=== PATIENT | male | born 1985 | race Caucasian/White ===

== ENCOUNTER 2020-12-16 15:17 | Inpatient (IN) | payer OTHER ==
[~2020-12-16] VITALS: Ht 188 cm; Wt 160.3 kg
[2020-12-16] MEDS ORDERED: SODIUM CHLORIDE FLUSH 10ML SYR IVF ONE (16:00)
[2020-12-16] MEDS ORDERED: SODIUM CHLORIDE 0.9% 1,000ML IVBOLUS ONE (16:00)
[2020-12-16 16:30] LABS: INTERNATIONAL NORMALIZED RATIO 3.8 (0.93-1.1); PROTHROMBIN TIME 38.2 Seconds (9.6-11.5)
[2020-12-16 16:32] LABS: ALANINE AMINOTRANSFERASE 22 U/L (12-78); ALBUMIN 3.3 g/dL (3.4-5.0); ANION GAP 5 mmol/L (5-15); BASOPHILS % (AUTO) 1 % (0-1); CALCIUM 8.9 mg/dL (8.5-10.1); CHLORIDE 109 mmol/L (98-107); CREATININE 0.96 mg/dL (0.7-1.3); EOSINOPHILS % (AUTO) 2 % (1-7); LYMPHOCYTES % (AUTO) 12 % (22-44); MEAN CORPUSCULAR HEMOGLOBIN 28.9 pg (27.5-34.5); MEAN CORPUSCULAR HGB CONC 34.3 g/dL (33.2-36.2); MEAN PLATELET VOLUME 8.1 fL (7.4-10.4); MONOCYTES % (AUTO) 6 % (2-9); NEUTROPHILS % (AUTO) 80 % (42-75); PLATELET COUNT 336 x10^3/uL (130-400); RED BLOOD COUNT 4.55 x10^6/uL (4.38-5.82); RED CELL DISTRIBUTION WIDTH 14.6 % (9.4-14.8)
[2020-12-16 16:34] LABS: ALKALINE PHOSPHATASE 81 U/L (45-117); BILIRUBIN,TOTAL 0.8 mg/dL (0.2-1.0)
[2020-12-16] MEDS ORDERED: ONDANSETRON 2MG/ML, 2ML ONE (18:48)
[2020-12-16] MEDS ORDERED: HYDROmorphone 1 MG/ML, 1ML INJ ONE ×3 (18:48→23:39)
[2020-12-16] MEDS ORDERED: LIDOCAINE/PF 1%, 30ML ONE (18:54)
[2020-12-16] MEDS ORDERED: EPINEPHRINE 1 MG/ML, 1ML ONE (18:54)
--- NOTE | 2020-12-16 18:59 | NUR ---
pt here for abcess to tooth. pt sent here for md. PIV placed. fluids running and pt medicated for nausea and pain. pt has hx of dm2, htn and mitral valve replacement. pt to ct. will hand abx whrn pt returns
[2020-12-16] MEDS ORDERED: AMPICILLIN/SULBACTAM 3 GM in SODIUM CHLORIDE 0.9% 100 ML IV ONE (19:00)
[2020-12-16] MEDS ORDERED: ONDANSETRON 2MG/ML, 2ML IVPush ONE (19:00)
[2020-12-16] MEDS ORDERED: HYDROmorphone 2 MG/ML, 1ML IVPush ONE (19:00)
[2020-12-16] MEDS ORDERED: OMNIPAQUE 350 MG/ML, 100ML BOTTLE ONE (19:12)
[2020-12-16] MEDS ORDERED: PIOG15TA22 PO (19:25)
[2020-12-16] MEDS ORDERED: CARV25TA12 PO (19:25)
[2020-12-16] MEDS ORDERED: METF-163 PO (19:25)
[2020-12-16] MEDS ORDERED: ATOR-2 PO (19:25)
[2020-12-16] MEDS ORDERED: SERT100T PO (19:25)
[2020-12-16] MEDS ORDERED: WARF4TAB65 PO (19:25)
[2020-12-16] MEDS ORDERED: FENO145T19 PO (19:25)
[2020-12-16] MEDS ORDERED: WARF2TAB99 PO (19:25)
[2020-12-16] MEDS ORDERED: GLIP10TA13 PO (19:25)
[2020-12-16] MEDS ORDERED: LISI5TAB7 PO (19:25)
--- NOTE | 2020-12-16 19:31 | NUR ---
ABX running. Med rec complete. Pt getting undressed for OR. VSS, Call light in reach
--- NOTE | 2020-12-16 19:47 | NUR ---
PT TO GO TO MRI. SCREENING FORM FAXED TO MRI.
--- NOTE | 2020-12-16 19:52 | NUR ---
REPORT FROM NURIA CLARK
--- NOTE | 2020-12-16 19:55 | NUR ---
PER DR MCKEON, HOLD FFP SINCE PT IS NOT GOING TO HAVE SURGERY UNTIL TOMORROW.
[2020-12-16] MEDS ORDERED: GADOTERATE 10 MMOL/20ML SYR ONE ×2 (20:21→20:35)
--- NOTE | 2020-12-16 20:39 | NUR ---
PT IN MRI AT THIS TIME
--- NOTE | 2020-12-16 21:05 | NUR ---
PT REQUESTING MORE PAIN MEDS. DR MCKEON NOTIFED.
--- NOTE | 2020-12-16 21:20 | NUR ---
VERBAL ORDERS RECIEVED FOR 1 MG IV DILAUDID. PT MEDICATED FOR PAIN PER DR JAMIL ORDERS
[2020-12-16] MEDS ORDERED: HYDROmorphone 1 MG/ML, 1ML INJ IV ONE ×2 (21:30→23:30)
--- NOTE | 2020-12-16 22:04 | NUR ---
PT REPORTS RELIEF OF PAIN
--- NOTE | 2020-12-16 23:17 | NUR ---
CALLED RAD REGARDING MRI READ. SHAHRZAD STATES SHE WILL PUSH IT TO STAT RAD
[2020-12-17] VITALS (7 sets, daily range): BP systolic 136–153; BP diastolic 82–91
--- NOTE | 2020-12-17 00:04 | NUR ---
REPORT TO NURIA WEBBER
[2020-12-17] MEDS ORDERED: KETOROLAC 30 MG/1 ML IV PRN (00:30)
[2020-12-17] MEDS ORDERED: ONDANSETRON 2MG/ML, 2ML IVPush PRN ×2 (00:30→20:00)
[2020-12-17] MEDS ORDERED: BISACODYL 10 MG SUPP PR PRN (00:30)
[2020-12-17] MEDS ORDERED: LABETALOL 5MG/ML, 20ML IVPush PRN (00:30)
[2020-12-17] MEDS ORDERED: HEPARIN 5,000 UNITS/ML, 1ML IV ONE (01:00)
[2020-12-17] MEDS: LACTATED RINGERS 1,000 ML IV SCH ×3 (01:31→21:57)
[2020-12-17] MEDS: HYDROmorphone 1 MG/ML, 1ML INJ IV PRN ×6 (01:40→22:32)
[2020-12-17] MEDS: AMPICILLIN/SULBACTAM 3 GM in SODIUM CHLORIDE 0.9% 100 ML IV SCH ×4 (01:52→21:47)
[2020-12-17 01:57] LABS: BASOPHILS % (AUTO) 1 % (0-1); EOSINOPHILS % (AUTO) 2 % (1-7); LYMPHOCYTES % (AUTO) 15 % (22-44); MEAN CORPUSCULAR HEMOGLOBIN 28.3 pg (27.5-34.5); MEAN CORPUSCULAR HGB CONC 33.6 g/dL (33.2-36.2); MEAN PLATELET VOLUME 7.8 fL (7.4-10.4); MONOCYTES % (AUTO) 7 % (2-9); NEUTROPHILS % (AUTO) 75 % (42-75); PLATELET COUNT 330 x10^3/uL (130-400)
[2020-12-17] MEDS: INSULIN LISPRO 100 UNITS/ML, PEN SQ-INSULIN SCH ×5 (01:58→21:00)
[2020-12-17] MEDS: HEPARIN 25,000 UNITS/250ML PMX 250 ML IV PRN ×2 (02:57→23:20)
[2020-12-17] MEDS: LISINOPRIL 5 MG TABLET PO SCH (08:06)
[2020-12-17] MEDS: FENOFIBRATE 145 MG TABLET PO SCH (08:06)
[2020-12-17] MEDS: SERTRALINE 100MG TABLET PO SCH (08:07)
[2020-12-17] MEDS: CARVEDILOL 25 MG TABLET PO SCH ×2 (08:07→21:47)
[2020-12-17] MEDS: HEPARIN 5,000 UNITS/ML, 1ML IV PRN ×2 (09:27→23:54)
[2020-12-17 10:08] LABS: INTERNATIONAL NORMALIZED RATIO 3.35 (0.93-1.1); PROTHROMBIN TIME 33.8 Seconds (9.6-11.5)
[2020-12-17] MEDS ORDERED: BUPIVACAINE 0.25% ONE (18:34)
[2020-12-17] MEDS ORDERED: EPINEPHRINE 1 MG/ML, 1ML ONE (18:34)
[2020-12-17] MEDS ORDERED: LIDOCAINE/PF 1%, 30ML ONE (18:34)
[2020-12-17] MEDS ORDERED: FENTANYL PF 250 MCG/5ML ONE (19:01)
[2020-12-17] MEDS ORDERED: MIDAZOLAM 1 MG/ML, 2ML ONE (19:01)
[2020-12-17] MEDS ORDERED: SUCCINYLCHOLINE 20 MG/ML, 10ML ONE (19:23)
[2020-12-17] MEDS ORDERED: ONDANSETRON 2MG/ML, 2ML ONE (19:23)
[2020-12-17] MEDS ORDERED: LIDOCAINE/PF 1%, 30ML INFIL ONE (19:26)
[2020-12-17] MEDS ORDERED: PROPOFOL 10 MG/ML, 20ML ONE (19:35)
[2020-12-17] MEDS ORDERED: ROCURONIUM 10MG/ML,5ML ONE (19:35)
[2020-12-17] MEDS ORDERED: HYDROmorphone 1 MG/ML, 1ML INJ IVPush PRN (20:00)
[2020-12-17] MEDS ORDERED: LABETALOL 5MG/ML, 20ML IV PRN (20:00)
[2020-12-17] MEDS ORDERED: ACETAMINOPHEN 325 MG TABLET PO PRN (20:00)
[2020-12-17] MEDS ORDERED: MEPERIDINE/PF 25MG/0.5ML IVPush PRN (20:00)
[2020-12-17] MEDS ORDERED: hydrALAzine 20 MG/ML, 1ML IV PRN (20:00)
[2020-12-17] MEDS ORDERED: OXYcodone 5 MG/5 ML ORAL.SOL UDC PO PRN (20:00)
[2020-12-17] MEDS ORDERED: PROMETHAZINE 25 MG/ML, 1ML IVPush PRN (20:00)
[2020-12-17] MEDS ORDERED: FENTANYL PF 100 MCG/2ML ONE (20:15)
[2020-12-17] MEDS: FENTANYL PF 100 MCG/2ML IV PRN ×2 (20:18→20:45)
[2020-12-17] MEDS ORDERED: ACETAMINOPHEN 650 MG/20.3 ML UDC ONE (20:51)
[2020-12-17] MEDS ORDERED: OXYcodone 5 MG/5 ML ORAL.SOL UDC ONE (20:51)
[2020-12-17] MEDS ORDERED: ATORVASTATIN 80 MG TABLET PO SCH (21:00)
[2020-12-17] MEDS: CHLORHEXIDINE 15 ML UDC MM SCH (22:22)
[2020-12-17 23:33] LABS: INTERNATIONAL NORMALIZED RATIO 3.02 (0.93-1.1); PROTHROMBIN TIME 30.7 Seconds (9.6-11.5)
[2020-12-18 00:24] VITALS: BP 116/75
[2020-12-18] MEDS: HYDROmorphone 1 MG/ML, 1ML INJ IV PRN ×4 (01:17→10:06)
[2020-12-18] MEDS: AMPICILLIN/SULBACTAM 3 GM in SODIUM CHLORIDE 0.9% 100 ML IV SCH ×2 (03:21→09:08)
[2020-12-18 03:57] VITALS: BP 117/78
[2020-12-18] MEDS: HEPARIN 5,000 UNITS/ML, 1ML IV PRN (06:00)
[2020-12-18 06:07] LABS: CHLORIDE 108 mmol/L (98-107)
[2020-12-18] MEDS: INSULIN LISPRO 100 UNITS/ML, PEN SQ-INSULIN SCH ×2 (06:14→10:55)
[2020-12-18 06:15] LABS: ALANINE AMINOTRANSFERASE 19 U/L (12-78); ALBUMIN 2.6 g/dL (3.4-5.0); ALKALINE PHOSPHATASE 63 U/L (45-117); ANION GAP 7 mmol/L (5-15); BILIRUBIN,TOTAL 0.6 mg/dL (0.2-1.0); CALCIUM 8.4 mg/dL (8.5-10.1); CREATININE 0.87 mg/dL (0.7-1.3); TOTAL PROTEIN 6.7 g/dL (6.4-8.2)
[2020-12-18 07:15] VITALS: BP 138/89
[2020-12-18] MEDS: CHLORHEXIDINE 15 ML UDC MM SCH (08:01)
[2020-12-18] MEDS: LISINOPRIL 5 MG TABLET PO SCH (08:01)
[2020-12-18] MEDS: SERTRALINE 100MG TABLET PO SCH (08:01)
[2020-12-18] MEDS: CARVEDILOL 25 MG TABLET PO SCH (08:01)
[2020-12-18] MEDS: LACTATED RINGERS 1,000 ML IV SCH (08:01)
[2020-12-18] MEDS: FENOFIBRATE 145 MG TABLET PO SCH (08:01)
[2020-12-18 08:56] LABS: INTERNATIONAL NORMALIZED RATIO 3.69 (0.93-1.1); PROTHROMBIN TIME 37.1 Seconds (9.6-11.5)
[2020-12-18] MEDS ORDERED: AMOX600S36 PO (10:24)
[2020-12-18] MEDS ORDERED: OXYC-302 PO (10:26)
[2020-12-18 12:19] VITALS: BP 127/66
== END 2020-12-18 13:35 | disposition home or self-care (01) | DRG 138 ==
LOC: ED 15:47 → EDIP 23:41 → 4NE 12-17 00:40 → DCLOUNGE 12-18 13:15
PROVIDERS: ADMIT Internal Medicine; ATTEND Hospitalist
PROC: 0W940ZZ Drainage of Upper Jaw, Open Approach (ICD-10-PCS; 2020-12-17)
PROC: 30233K1 Transfusion of Nonautologous Frozen Plasma into Peripheral Vein, Percutaneous Approach (ICD-10-PCS; 2020-12-17)
PROC: 0CDWXZ0 Extraction of Upper Tooth, Single, External Approach (ICD-10-PCS; principal; 2020-12-17 17:00)
DX: K12.2 Cellulitis and abscess of mouth (principal); G93.89 Other specified disorders of brain; K04.7 Periapical abscess without sinus; Z20.822 Contact with and (suspected) exposure to COVID-19; K02.9 Dental caries, unspecified; I05.9 Rheumatic mitral valve disease, unspecified; N35.919 Unspecified urethral stricture, male, unspecified site; E11.65 Type 2 diabetes mellitus with hyperglycemia; R79.1 Abnormal coagulation profile; Z79.01 Long term (current) use of anticoagulants; Z80.0 Family history of malignant neoplasm of digestive organs; Z82.5 Family history of asthma and other chronic lower respiratory diseases; Z83.3 Family history of diabetes mellitus; Z95.2 Presence of prosthetic heart valve; Z79.84 Long term (current) use of oral hypoglycemic drugs; Z88.5 Allergy status to narcotic agent
CPT/HCPCS: 36415; 96374; 96375; 99285; J3490; 36430; 70487; 70553; 80053; 82962; 83605; 85025; 85520; 85610; 86850; 86900; 87040; 87635; 93005; G0378; J0171; J0295; J1170; J1644; J1885; J2250; J2405; J2704; J3010; Q9967; A9575; J0330; J7030; J7120; P9017

== ENCOUNTER 2020-12-19 07:24 | Inpatient (IN) | payer OTHER ==
[~2020-12-19] VITALS: Ht 185.4 cm; Wt 154.2 kg
[2020-12-19] VITALS (8 sets, daily range): BP systolic 122–136; BP diastolic 79–85
[~2020-12-19 07:24] MED LIST: AMOX600S36 PO; ATOR-2 PO; CARV25TA12 PO; FENO145T19 PO; GLIP10TA13 PO; LISI5TAB7 PO; METF-163 PO; OXYC-302 PO; PIOG15TA22 PO; SERT100T PO; WARF2TAB99 PO; WARF4TAB65 PO
--- NOTE | 2020-12-19 07:41 | NUR ---
BIB [facility] W/ C/O N/ABD PAIN. PT HAD TOOTH EXTRACTION YESTERDAY, ON BLOOD THINNER COUMADIN R/T VALVE REPLACEMENT. BLOOD SUGAR WAS 364, SYSTOLIC BP IN 90'S, LAST ONE WAS 97. 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 PT PLACED ON MONITORS (CARDIAC, BP, PULSE OX), MED STUDENT BEDSIDE W/ PT. NADN, CALL LIGHT W/ IN REACH
[2020-12-19] MEDS ORDERED: SODIUM CHLORIDE 0.9% 1,000 ML IV ONE (08:00)
[2020-12-19] MEDS ORDERED: TRANEXAMIC ACID 100 MG/ML, 10ML TP ONE (08:00)
[2020-12-19] MEDS ORDERED: TRANEXAMIC ACID 100 MG/ML, 10ML ONE ×2 (08:02→08:08)
--- NOTE | 2020-12-19 08:18 | NUR ---
PT MEDICATED PER AUG. RESTING IN GURNEY, EASILY AROUSABLE. VSS, NADN. CALL LIGHT W/IN REACH
[2020-12-19 08:26] LABS: BASOPHILS % (AUTO) 1 % (0-1); EOSINOPHILS % (AUTO) 3 % (1-7); LYMPHOCYTES % (AUTO) 11 % (22-44); MEAN CORPUSCULAR HEMOGLOBIN 28.9 pg (27.5-34.5); MEAN CORPUSCULAR HGB CONC 33.8 g/dL (33.2-36.2); MEAN PLATELET VOLUME 8.3 fL (7.4-10.4); MONOCYTES % (AUTO) 6 % (2-9); NEUTROPHILS % (AUTO) 79 % (42-75); PLATELET COUNT 324 x10^3/uL (130-400); RED BLOOD COUNT 3.02 x10^6/uL (4.38-5.82); RED CELL DISTRIBUTION WIDTH 14.7 % (9.4-14.8)
[2020-12-19 08:31] LABS: ALBUMIN 2.5 g/dL (3.4-5.0); INTERNATIONAL NORMALIZED RATIO 3.51 (0.93-1.1); PROTHROMBIN TIME 35.4 Seconds (9.6-11.5)
[2020-12-19 08:35] LABS: ALANINE AMINOTRANSFERASE 16 U/L (12-78); ALKALINE PHOSPHATASE 53 U/L (45-117); BILIRUBIN,TOTAL 0.6 mg/dL (0.2-1.0); CREATININE 0.89 mg/dL (0.7-1.3); TOTAL PROTEIN 6.1 g/dL (6.4-8.2)
[2020-12-19 08:47] LABS: ANION GAP 8 mmol/L (5-15); CHLORIDE 112 mmol/L (98-107)
--- NOTE | 2020-12-19 09:10 | NUR ---
PT RESTING IN [place], HE REPORTS HE IS FEELING BETTER RIGHT NOW AND DENIES ANY NEEDS. VSS, RADHAN, CALL LIGHT W/IN REACH. LIGHT TURNED OFF FOR PT COMFORT.
--- NOTE | 2020-12-19 09:17 | NUR ---
PT TO CT
--- NOTE | 2020-12-19 09:33 | NUR ---
PT BACK FROM CT, MD BEDSIDE TO FURTHER INSERT GAUZE.
[2020-12-19] MEDS ORDERED: OMNIPAQUE 350 MG/ML, 150 ML BOTTLE ONE (09:44)
--- NOTE | 2020-12-19 09:54 | NUR ---
PT RESTING IN [place], ZURI, RADHAN. CALL LIGHT W/IN REACH.
[2020-12-19] MEDS ORDERED: BUTALB/APAP/CAFFEINE 50MG/325MG/40MG PO PRN (10:30)
[2020-12-19] MEDS ORDERED: GUAIFENESIN/DM 200-20MG, 10ML UDC PO PRN (10:30)
[2020-12-19] MEDS ORDERED: ONDANSETRON ODT 4 MG PO PRN (10:30)
[2020-12-19] MEDS ORDERED: hydrALAzine 20 MG/ML, 1ML IVPush PRN (10:30)
[2020-12-19] MEDS ORDERED: BACLOFEN 10 MG TABLET PO PRN (10:30)
[2020-12-19] MEDS ORDERED: ONDANSETRON 2MG/ML, 2ML IVPush PRN (10:30)
[2020-12-19] MEDS ORDERED: ENALAPRILAT 1.25 MG/ML, 2ML IVPush PRN (10:30)
[2020-12-19] MEDS ORDERED: ACETAMINOPHEN 325 MG TABLET PO PRN (10:30)
--- NOTE | 2020-12-19 10:36 | NUR ---
PT APPEARS TO BE SLEEPING IN GURNEY AGAIN, BEDSIDE. SASHA KEATING. CALL LIGHT W/IN REACH.
--- NOTE | 2020-12-19 10:46 | NUR ---
PT SLEEPING, UPDATED ON POC. VSSASHA Pandey. CALL LIGHT W/IN REACH.
--- NOTE | 2020-12-19 11:11 | NUR ---
Called to give report, Adelaida QUIÑONES said she felt pt should be going to onc based on CT and was notifying her charge loader. Throughput and charge notified.
--- NOTE | 2020-12-19 11:29 | NUR ---
SBAR REPORT GIVEN TO ASHLY, ANSWERED QUESTIONS.
--- NOTE | 2020-12-19 11:38 | NUR ---
PT AND UPDATED ON ROOM AND THAT HE WILL SOON BE TRANSFERRED
[2020-12-19] MEDS: OXYcodone IR 5MG TABLET PO PRN ×3 (15:16→21:39)
[2020-12-19] MEDS ORDERED: MELATONIN 5 MG TABLET PO SCH (21:00)
[2020-12-19] MEDS: AMOXICILLIN/CLAV 875-125MG TABLET PO SCH (22:39)
[2020-12-20 00:36] VITALS: BP 130/75
[2020-12-20 00:40] VITALS: BP 130/75
[2020-12-20 00:44] VITALS: BP 130/75
[2020-12-20] MEDS: OXYcodone IR 5MG TABLET PO PRN (01:32)
[2020-12-20 07:03] VITALS: BP 129/86
[2020-12-20 08:04] LABS: BASOPHILS % (AUTO) 1 % (0-1); EOSINOPHILS % (AUTO) 5 % (1-7); LYMPHOCYTES % (AUTO) 29 % (22-44); MEAN CORPUSCULAR HEMOGLOBIN 29.1 pg (27.5-34.5); MEAN CORPUSCULAR HGB CONC 34.3 g/dL (33.2-36.2); MEAN PLATELET VOLUME 7.8 fL (7.4-10.4); MONOCYTES % (AUTO) 9 % (2-9); NEUTROPHILS % (AUTO) 56 % (42-75); PLATELET COUNT 309 x10^3/uL (130-400); RED BLOOD COUNT 3.15 x10^6/uL (4.38-5.82); RED CELL DISTRIBUTION WIDTH 14.9 % (9.4-14.8)
[2020-12-20 08:13] LABS: ALBUMIN 2.7 g/dL (3.4-5.0); ANION GAP 5 mmol/L (5-15); CALCIUM 8.5 mg/dL (8.5-10.1); CHLORIDE 117 mmol/L (98-107)
[2020-12-20 08:17] LABS: ALANINE AMINOTRANSFERASE 20 U/L (12-78); ALKALINE PHOSPHATASE 49 U/L (45-117); BILIRUBIN,TOTAL 0.4 mg/dL (0.2-1.0); TOTAL PROTEIN 6.4 g/dL (6.4-8.2)
[2020-12-20] MEDS: AMOXICILLIN/CLAV 875-125MG TABLET PO SCH (08:38)
[2020-12-20] MEDS ORDERED: SENNA/DOCUSATE TABLET PO SCH (09:00)
[2020-12-20 09:04] LABS: CREATININE 0.68 mg/dL (0.7-1.3)
== END 2020-12-20 13:35 | disposition home or self-care (01) | DRG 158 ==
LOC: ED 08:53 → EDIP 09:46 → 4NW 11:51
PROVIDERS: ADMIT Family Medicine; ATTEND Family Medicine
PROC: 30233N1 Transfusion of Nonautologous Red Blood Cells into Peripheral Vein, Percutaneous Approach (ICD-10-PCS; principal; 2020-12-19)
DX: K04.7 Periapical abscess without sinus (principal); L03.211 Cellulitis of face; D62 Acute posthemorrhagic anemia; E11.9 Type 2 diabetes mellitus without complications; I10 Essential (primary) hypertension; N35.919 Unspecified urethral stricture, male, unspecified site; Z79.01 Long term (current) use of anticoagulants; Z95.2 Presence of prosthetic heart valve; Z82.49 Family history of ischemic heart disease and other diseases of the circulatory system; Z83.3 Family history of diabetes mellitus; Z82.5 Family history of asthma and other chronic lower respiratory diseases; Z80.8 Family history of malignant neoplasm of other organs or systems
CPT/HCPCS: 36415; 36430; 74177; 80053; 82962; 83690; 83735; 85025; 85610; 86850; 86900; 86923; 99291; G0378; Q9967; J7030; P9016